=== PATIENT | male | born 1955 | race Caucasian/White ===

== ENCOUNTER → 2016-06-13 | Outpatient (REF) | payer BC ==
[2016-06-13 11:47] LABS: ANION GAP 6 MEQ/L (8-16); BLOOD UREA NITROGEN 14 MG/DL (7-18); CALCIUM LEVEL 8.6 MG/DL (8.8-10.2); CARBON DIOXIDE LEVEL 32 MEQ/L (21-32); CHLORIDE LEVEL 109 MEQ/L (98-107); CREATININE FOR GFR 1.04 MG/DL (0.70-1.30); GLOMERULAR FILTRATION RATE > 60.0 (>49); GLUCOSE, FASTING 93 MG/DL (80-110); POTASSIUM SERUM 4.7 MEQ/L (3.5-5.1); SODIUM LEVEL 147 MEQ/L (136-145)
[2016-06-13 12:00] LABS: FREE T4 0.91 NG/DL (0.76-1.46)
== END ==
LOC: M SFHCLERA 08:13
PROVIDERS: ATTEND Family Medicine
DX: I10 Essential (primary) hypertension (principal); E87.5 Hyperkalemia

== ENCOUNTER → 2016-06-26 | Outpatient (CLI) | payer BC | LOC: M SMT 14:49 | PROVIDERS: ATTEND Nurse Practitioner Women's Health | DX: Z12.5 Encounter for screening for malignant neoplasm of prostate (principal) | CPT/HCPCS: 36415; 81001; 87086; G0103 ==

== ENCOUNTER → 2016-09-12 | Outpatient (CLI) | payer BC ==
[~2016-09-12] VITALS: Ht 188 cm; Wt 96.6 kg
[~2016-09-12] MED LIST: LISI-538 PO; NS 1,000 ML IV SCH; OMEP40CA2 PO; PROPOFOL 200 MG/20 ML VIAL As Ordered ONE
--- NOTE | 2016-09-12 10:07 | ROOR ---
Patient Name: Andi Schafer Procedure Date: 09/12/2016 9:45 AM Date of : 1955 Age: 61 Room: [facility] Gender: Male Note Status: Finalized Procedure: Colonoscopy Indications: Screening in patient at increased risk: Colorectal cancer in father before age 60 Providers: Carrington HESTER MD Referring MD: Kirill Rayo MD Requesting Provider: Medicines: Monitored Anesthesia Care Complications: No immediate complications. Procedure: Pre-Anesthesia Assessment: - The heart rate, respiratory rate, oxygen saturations, blood pressure, adequacy of pulmonary ventilation, and response to care were monitored throughout the procedure. The Colonoscope was introduced through the anus and advanced to the cecum, identified by appendiceal orifice and ileocecal valve. The colonoscopy was performed without difficulty. The patient tolerated the procedure well. The quality of the bowel preparation was good. Findings: The perianal and digital rectal examinations were normal. (Exam: Complete, Prep: Good or Excellent.) Two sessile polyps were found in the sigmoid colon and ascending colon. The polyps were 3 to 5 mm in size. These polyps were removed with a cold snare. Resection and retrieval were complete. Multiple medium-mouthed diverticula were found in the sigmoid colon. Small Internal Hemorrhoids. The exam was otherwise without abnormality on direct and retroflexion views. Impression: - Two 3 to 5 mm polyps in the sigmoid colon and in the ascending colon, removed with a cold snare. Resected and retrieved. - Moderate diverticulosis in the sigmoid colon. - Small Internal Hemorrhoids. - The examination was otherwise normal on direct and retroflexion views. Recommendation: - Repeat colonoscopy in 3 years for surveillance. Carrington Hester MD Carrington HESTER MD 09/12/2016 10:07:05 AM This report has been signed electronically. Number of Addenda: 0 Note Initiated On: 09/12/2016 9:45 AM Estimated Blood Loss: Estimated blood loss: none.
[2016-09-12 10:40] VITALS: BP 182/100
== END | disposition home or self-care (01) ==
LOC: M OPP 08:24
PROVIDERS: ATTEND Internal Medicine Gastroenterology
DX: Z12.11 Encounter for screening for malignant neoplasm of colon (principal); D12.5 Benign neoplasm of sigmoid colon; D12.2 Benign neoplasm of ascending colon; K57.30 Diverticulosis of large intestine without perforation or abscess without bleeding; K64.8 Other hemorrhoids; I10 Essential (primary) hypertension; R12 Heartburn; K21.9 Gastro-esophageal reflux disease without esophagitis; R06.83 Snoring; Z88.0 Allergy status to penicillin; Z79.899 Other long term (current) drug therapy; Z80.42 Family history of malignant neoplasm of prostate; Z80.0 Family history of malignant neoplasm of digestive organs; Z80.1 Family history of malignant neoplasm of trachea, bronchus and lung; Z80.8 Family history of malignant neoplasm of other organs or systems

== ENCOUNTER 2016-10-20 11:36 | Observation (INO) | payer BC ==
[~2016-10-20] VITALS: Ht 188 cm; Wt 86.5 kg
[~2016-10-20 11:36] MED LIST changes: -NS 1,000 ML IV SCH; -PROPOFOL 200 MG/20 ML VIAL As Ordered ONE
[2016-10-20] MEDS ORDERED: NS 1,000 ML IV ONE (12:00)
[2016-10-20 12:09] LABS: BASO % 0.7 % (0.0-1.0); EOS # 0.5 K/mm3 (0.0-0.50); EOS % 6.7 % (0.0-3.0); LARGE UNSTAINED CELL # 0.1 K/mm3 (0.0-0.4); LARGE UNSTAINED CELL % 1.9 % (0.0-4.0); LYMPH # 1.4 K/mm3 (1.5-4.5); LYMPH % 18.3 % (24.0-44.0); MEAN CORPUSCULAR HGB CONC 34.3 g/dl (32.0-36.5); MEAN CORPUSCULAR VOLUME 93.2 fl (80.0-96.0); MONO # 0.3 K/mm3 (0.0-0.8); MONO % 4.3 % (0.0-5.0); NEUTROPHILS # 4.8 K/mm3 (1.8-7.7); NEUTROPHILS % 68.2 % (36.0-66.0); PLATELET COUNT, AUTOMATED 288 k/mm3 (150-450)
[2016-10-20] MEDS ORDERED: METOPROLOL 5 MG/5 ML VIAL IV SCH (12:30)
--- NOTE | 2016-10-20 12:31 | REP ---
NONCONTRAST BRAIN CT: HISTORY: New onset seizure. No comparison study. FINDINGS: Digital lateral mechanics supervisor radiograph is unremarkable. Bone window settings demonstrate an intact bony calvarium. There is no evidence of intracranial hemorrhage. No extra-axial fluid collection is seen. Visualized paranasal sinuses are clear. There is mild diffuse cerebral atrophy. There is no evidence of infarct, mass, extra-axial fluid collection, or midline shift. IMPRESSION: Mild diffuse atrophy, no acute intracranial abnormality. Signed by Kiko Leiva MD 10/20/2016 12:58 P
[2016-10-20 12:41] LABS: ALBUMIN 3.9 GM/DL (3.2-5.2); ALBUMIN/GLOBULIN RATIO 1.08 (1.00-1.93); ALKALINE PHOSPHATASE 108 U/L (45-117); ALT/SGPT 22 U/L (12-78); ANION GAP 12 MEQ/L (8-16); AST/SGOT 17 U/L (15-37); BILIRUBIN,DIRECT 0.1 MG/DL (0.0-0.2); BILIRUBIN,TOTAL 0.5 MG/DL (0.2-1.0); BLOOD UREA NITROGEN 17 MG/DL (7-18); CALCIUM LEVEL 9.2 MG/DL (8.8-10.2); CARBON DIOXIDE LEVEL 23 MEQ/L (21-32); CHLORIDE LEVEL 104 MEQ/L (98-107); CREATININE FOR GFR 1.17 MG/DL (0.70-1.30); FREE T4 0.95 NG/DL (0.76-1.46); GLOMERULAR FILTRATION RATE > 60.0 (>49); GLUCOSE, FASTING 104 MG/DL (80-110); SODIUM LEVEL 139 MEQ/L (136-145); TOTAL PROTEIN 7.5 GM/DL (6.4-8.2)
[2016-10-20] MEDS ORDERED: METOPROLOL TART 25 MG TABLET PO ONE (12:45)
--- NOTE | 2016-10-20 13:05 | REP ---
PORTABLE CHEST: COMPARISON: 08/11/2007. Single view. CHEST: There is no evidence of acute infiltrate. No pleural effusion is seen. The heart is normal in size. The mediastinal silhouette is unremarkable. The visualized osseous structures are intact. IMPRESSION: No acute pulmonary disease. Signed by Rajesh Miranda MD 10/20/2016 08:00 P
[2016-10-20] MEDS ORDERED: ACETAMINOPHEN TAB 650MG DOSE (2X325MG) PO PRN (13:15)
[2016-10-20] MEDS ORDERED: GINS100C2 PO (13:29)
[2016-10-20] MEDS ORDERED: IBUP200C PO (13:29)
[2016-10-20] MEDS ORDERED: MULTIVITAMIN PO (13:29)
[2016-10-20] MEDS ORDERED: VITA10002 PO (13:29)
[2016-10-20] MEDS ORDERED: DRIS50002 PO (13:29)
[2016-10-20] MEDS ORDERED: FLAX1000 PO (13:29)
[2016-10-20] MEDS ORDERED: TYLE325T5 PO (13:29)
[2016-10-20] MEDS ORDERED: GREE1TAB PO (13:29)
[2016-10-20 15:25] VITALS: BP 136/90
--- NOTE | 2016-10-20 16:40 | HPE ---
DATE OF ADMISSION: 10/20/2016 ATTENDING PHYSICIAN: Dr. Janiya Lorenz PRIMARY CARE PROVIDER: Dr. Rayo CHIEF COMPLAINT: Seizure-like activity. HISTORY OF PRESENT ILLNESS: Mr. Schafer is a 61-year-old male with past medical history significant for hypertension, gastroesophageal reflux disease (GERD) and enlarged prostate, who was in his usual state of health this morning. He proceeded to go to the dentist to have a crown and two fillings done. Once he was administered lidocaine, it was reported that he had seizure-like activity that lasted less than 2 minutes. No tongue laceration, no bowel or bladder incontinence. Emergency personnel was called. On initial evaluation, he was postictal and hypoxic. When he was hooked up to the monitor, he was found to be in atrial fibrillation with rapid ventricular rate. The patient denies any previous history of seizures or atrial fibrillation. He denies any recent stressors. No trouble with sleeping. No excessive caffeine use, drinks about one energy drink every couple of days. Consumes alcohol maybe once a week. The patient remembers the lidocaine injection going in, and the next thing he remembers is being evaluated by emergency medical services (EMS). He denied any chest pain/pressure, shortness of breath, lightheadedness, dizziness, palpitations, nausea, vomiting, abdominal pain, diarrhea, rashes or skin lesions. In the emergency department, he was given an intravenous (IV) dose of Lopressor as well as oral Lopressor and converted to sinus rhythm. By the time he got to the emergency department, he was back to baseline mentation. In addition to metoprolol, he was also given normal saline in the emergency department and hospitalist service was called to admit. PAST MEDICAL HISTORY: 1. Hypertension. 2. GERD. 3. Benign prostatic hypertrophy. 4. History of precancerous lesions. 5. Vitamin D deficiency. PAST SURGICAL HISTORY: 1. Colonoscopy. 2. Appendectomy. 3. Hernia repair. 4. Tonsillectomy and adenoidectomy. HOME MEDICATIONS: - acetaminophen 650 mg as needed - vitamin B12 1000 mcg by mouth daily - ibuprofen 400 mg by mouth every 6 hours as needed - lisinopril 20 mg daily - omeprazole 40 mg by mouth at night - vitamin D 50,000 units by mouth weekly ALLERGIES: PENICILLIN (rash when he was 16 years old), LIDOCAINE (seizure). SOCIAL HISTORY: The patient denies any tobacco use. No illicit drug use. He consumes alcohol maybe once a week. Lives with his , son, son's fiancee and granddaughter. One dog in the home. No recent travel. No sick contacts. 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 FAMILY HISTORY: Dad had a history of colon cancer. Mom has a history of glaucoma. Son has a history of seizures. He has two children. REVIEW OF SYSTEMS: As per history of the present illness. In addition, the patient denies any headache, visual disturbance. No weight loss, night sweats, fevers or chills. No hematochezia or melena. No dysuria or hematuria. No history of diabetes or thyroid disorder. No unusual rashes or skin lesions. No syncope. No paresthesias. No history of cerebrovascular accident. No unusual muscle or joint pains. No excessive bleeding or bruising. PHYSICAL EXAMINATION: Vital signs: Temperature is 99.7, pulse is 92, respiratory rate 18, blood pressure 130/86, pulse oximetry 94% on room air. General: The patient is alert and oriented times three, in no acute distress. HEENT: Normocephalic, atraumatic. Extraocular muscles are intact. Pupils are equally round and reactive to light. No scleral icterus. Moist mucosa. Neck: Supple. No cervical lymphadenopathy. No thyromegaly. No jugular venous distension. Heart: Normal S1, S2. Regular rate and rhythm currently. No murmurs appreciated. Lungs: Clear to auscultation bilaterally. No rales, rhonchi or wheezing. Abdomen: Soft, nontender, nondistended. Positive bowel sounds. No rebound, guarding or rigidity. Extremities: No cyanosis or edema. Positive pedal pulses bilaterally. Skin: Warm and dry. No rashes noted. Neurologic: No focal deficits. Cranial nerves: II through XII are grossly intact. Motor, sensation intact. LABORATORY DATA: WBC 7.0, hemoglobin 15.0, hematocrit 43.8, platelet count 288, sodium 139, potassium 4.0, chloride 104, carbon dioxide 23, anion gap 12, BUN 17 , creatinine 1.17, GFR greater than 60, fasting glucose 104, calcium 9.2, magnesium 2.0, total bilirubin 0.5, direct bilirubin 0.1, AST 17, ALT 22, alkaline phosphatase 108, total creatinine kinase 105, troponin less than 0.02, total protein 7.5, albumin 3.9, TSH 1.08, free T4 0.95. IMAGING STUDIES: The patient had a head CT, which showed mild diffuse atrophy. No acute intracranial abnormality. He had a chest x-ray performed, which showed no acute pulmonary disease. The patient's initial EKG showed atrial fibrillation with a heart rate of 108. After rate controlling medication, he was sinus arrhythmia, low voltage in the precordial leads with left anterior fascicular block. ASSESSMENT AND PLAN: 1. Seizure after administration of lidocaine. The patient will have electroencephalogram (EEG). He has no history of previous seizures. Will await for EEG results prior to considering antiepileptic medications. Monitor neuro status with seizure precautions. 2. Atrial fibrillation with rapid ventricular rate, treated with IV and oral Lopressor. The patient converted to sinus rhythm and rate is currently controlled. No history of heart disease or valvular disease. Based on hisCHADS2 -VASc score, he has a score of 1 for hypertension. Will initiate aspirin. Will benefit from outpatient echocardiogram. 3. Hypertension. The patient takes 20 mg of lisinopril at home. 4. Gastroesophageal reflux disease. The patient takes omeprazole 40 mg at home. 5. Vitamin D deficiency. He is on 50,000 units weekly. 6. History of enlarged prostate. The patient states that this is very mild and is not on any medication for this. CODE STATUS: The patient is a FULL CODE. He will be admitted to progressive care unit (PCU) under observation. Dr. Kelly to take over his care in the morning. My preceptor for this patient encounter was Dr. Janiya Lorenz. The preceptor was physically present in the building during the encounter and was fully available. As needed, all aspects of the patient interview, examination, medical decision making process, and medical care plan development were reviewed and approved by the preceptor. The preceptor is aware and concurs with the plan as stated in the body of this note and will attest to such by his/her cosignature. [place]
[2016-10-20] MEDS: ASPIRIN 81 MG ENTERIC TAB PO SCH (16:46)
[2016-10-20 19:56] VITALS: BP 142/77
[2016-10-20 20:37] VITALS: BP 144/78
[2016-10-20] MEDS: METOPROLOL TART 12.5 MG PER 1/2 TAB PO SCH (20:39)
[2016-10-20] MEDS ORDERED: OMEPRAZOLE 20 MG CAP PO SCH (21:00)
[2016-10-21 00:07] VITALS: BP 119/74
[2016-10-21] MEDS ORDERED: SLF 3 ML SYR IV PRN (02:00)
[2016-10-21 04:22] VITALS: BP 132/66
[2016-10-21 05:27] LABS: MEAN CORPUSCULAR HEMOGLOBIN 32.4 pg (27.0-33.0); MEAN CORPUSCULAR HGB CONC 33.8 g/dl (32.0-36.5); MEAN CORPUSCULAR VOLUME 95.9 fl (80.0-96.0); WHITE BLOOD COUNT 9.6 K/mm3 (4.0-10.0)
[2016-10-21 05:36] LABS: ANION GAP 8 MEQ/L (8-16); BLOOD UREA NITROGEN 16 MG/DL (7-18); CALCIUM LEVEL 8.5 MG/DL (8.8-10.2); CARBON DIOXIDE LEVEL 28 MEQ/L (21-32); CHLORIDE LEVEL 104 MEQ/L (98-107); CREATININE FOR GFR 1.09 MG/DL (0.70-1.30); GLOMERULAR FILTRATION RATE > 60.0 (>49); GLUCOSE, FASTING 85 MG/DL (80-110); POTASSIUM SERUM 3.7 MEQ/L (3.5-5.1); SODIUM LEVEL 140 MEQ/L (136-145)
[2016-10-21] MEDS ORDERED: SLF 3 ML SYR IV SCH (06:00)
[2016-10-21 08:00] VITALS: BP 136/70
[2016-10-21 08:12] VITALS: BP 136/70
[2016-10-21] MEDS: ASPIRIN 81 MG ENTERIC TAB PO SCH (08:12)
[2016-10-21] MEDS: METOPROLOL TART 12.5 MG PER 1/2 TAB PO SCH (08:13)
--- NOTE | 2016-10-21 08:54 | EEG ---
DATE OF PROCEDURE: 10/20/2016 REFERRING PHYSICIAN: Dr. Benson Kelly DIAGNOSIS: Seizure. EEG NUMBER: 17 [id number] HISTORY: The patient is a 61-year-old man who had a seizure after injection of lidocaine for a dental procedure. He was noted to have atrial fibrillation on the heart monitor later. This EEG was done to rule out epileptic potential. He is currently taking metoprolol, etc. TECHNICAL DESCRIPTION: This digital EEG was recorded by 21 scalp, ear and two EKG electrodes and was reviewed in bipolar and referential montages following reformatting in 10-20 international electrode placement system. INTERPRETATION: The patient was noted to be in awake and drowsy states during this EEG. Resting awake background rhythm consisted of well-formed posterior dominant rhythm with anterior/posterior gradient comprising of 10 Hz alpha activity measuring 15-40 microvolts in amplitude which was symmetric and reactive to eye opening. Attenuation of posterior dominant rhythm was seen during transition into drowsiness. Stage I and II sleep were reviewed and were symmetric bilaterally. Anteriorly low voltage mixed frequency activity was noted. Wicket waves were noted during drowsiness in left temporal head region. Hyperventilation elicited mild theta slowing of background rhythm. Photic stimulation at 3-30 Hz elicited symmetric photic driving especially at mid frequencies. No focal, lateralizing or epileptiform abnormalities were seen. No clinical or electrographic seizures were recorded. EKG revealed normal sinus rhythm. CONCLUSION: This EEG in awake, drowsy states, stage I and II sleep is within normal limits.
[2016-10-21] MEDS ORDERED: LISINOPRIL 20 MG TAB PO SCH (09:00)
[2016-10-21] MEDS ORDERED: METO12TA PO (10:14)
[2016-10-21] MEDS ORDERED: ASPI1TAB PO (10:30)
--- NOTE | 2016-10-21 10:30 | DS.PDOC ---
Discharge Summary General Date of Admission October 20, 2016 at 13:15 Date of Discharge 10/21/2016 Primary Care Physician: ABBEY VARGAS MD Attending Physician: BENSON KELLY MD Discharge Summary PROCEDURES PERFORMED DURING STAY: Electroencephalogram CONCLUSION: This EEG in awake, drowsy states, stage I and II sleep is within normal limits. ADMITTING DIAGNOSES: 1. Seizure activity secondary to lidocaine administration. 2. Atrial fibrillation with rapid ventricular response. 3. Hypertension. 4. Gastroesophageal reflux disease. 5. Vitamin D deficiency. 6. Benign prostatic hyperplasia. DISCHARGE DIAGNOSES: 1. Atrial fibrillation with rapid ventricular response. 2. Seizure secondary to lidocaine administration. 3. Bradycardia. 4. Hypertension. COMPLICATIONS/CHIEF COMPLAINT: Seizure. HISTORY OF PRESENT ILLNESS: Mr. Schafer is a 61-year-old male with past medical history significant for hypertension, gastroesophageal reflux disease (GERD) and enlarged prostate, who was in his usual state of health this morning. He proceeded to go to the dentist to have a crown and two fillings done. Once he was administered lidocaine, it was reported that he had seizure-like activity that lasted less than 2 minutes. No tongue laceration, no bowel or bladder incontinence. Emergency personnel was called. On initial evaluation, he was postictal and hypoxic. When he was hooked up to the monitor, he was found to be in atrial fibrillation with rapid ventricular rate. The patient denies any previous history of seizures or atrial fibrillation. He denies any recent stressors. No trouble with sleeping. No excessive caffeine use, drinks about one energy drink every couple of days. Consumes alcohol maybe once a week. The patient remembers the lidocaine injection going in, and the next thing he remembers is being evaluated by emergency medical services (EMS). He denied any chest pain/pressure, shortness of breath, lightheadedness, dizziness, palpitations, nausea, vomiting, abdominal pain, diarrhea, rashes or skin lesions. In the emergency department, he was given an intravenous (IV) dose of Lopressor as well as oral Lopressor and converted to sinus rhythm. By the time he got to the emergency department, he was back to baseline mentation. In addition to metoprolol, he was also given normal saline in the emergency department and hospitalist service was called to admit. HOSPITAL COURSE: Electroencephalogram was obtained for seizure secondary to lidocaine administration and was found to be negative. Patient converted to sinus rhythm from atrial fibrillation with rapid ventricular response after administration of metoprolol and remained somewhat bradycardic. Decrease metoprolol to 6.25 mg twice a day at time of discharge. Prescribed aspirin at time of discharge. Remained on lisinopril for hypertension. Continued with omeprazole for gastric esophageal reflux disease. Patient can continue to take vitamin D supplementation. Patient had no acute events and improved during hospitalization. Stable at time of discharge. DISCHARGE MEDICATIONS: Please see below. ALLERGIES: Please see below. PHYSICAL EXAMINATION ON DISCHARGE: VITAL SIGNS: Please see below. GENERAL: Well-nourished, well-developed male resting him to be in hospital bed upon evaluation this morning, appears stated age, in no apparent distress HEENT: Atraumatic, normocephalic, PERRL, EOMI, wears spectacles, nasal septum appears midline, oral mucosa appears pink and moist, nares are patent NECK: Soft, supple, trachea midline, no lymphadenopathy appreciated CARDIOVASCULAR EXAMINATION: Regular rate and rhythm, normal S1 and S2, mildly bradycardic RESPIRATORY EXAMINATION: Clear to auscultation bilaterally, adequate inspiratory and expiratory airway excursion, no wheeze, rhonchi, crackles appreciated ABDOMINAL EXAMINATION: Soft, flat, nontender, nondistended, bowel sounds appreciated EXTREMITIES: Moving all 4 extremities appropriately, no edema appreciated, upper and lower extremity pulses appreciated bilaterally, equal, symmetrical, +2 /4 SKIN: Warm, dry, intact NEUROLOGICAL EXAMINATION: Cranial nerves II through XII grossly intact PSYCHIATRIC EXAMINATION: Mood and affect appear appropriate LABORATORY DATA: Please see below. IMAGING: Head CT without contrast IMPRESSION: Mild diffuse atrophy, no acute intracranial abnormality. Portable chest x-ray IMPRESSION: No acute pulmonary disease. PROGNOSIS: Stable. ACTIVITY: As tolerated. DIET: 2 g sodium. DISCHARGE PLAN: See discharge instructions. DISPOSITION: Home. DISCHARGE INSTRUCTIONS: 1. Start taking metoprolol 6.25 mg twice a day. 2. Start taking aspirin 81 mg. 3. Return to the nearest emergency department if you experience heart palpitations, heart racing, or seizure-like activity. ITEMS TO FOLLOWUP ON ON OUTPATIENT: 1. Follow-up with Dr. Vargas in 7-10 days. 2. Follow-up with cardiology. DISCHARGE CONDITION: Stable. TIME SPENT ON DISCHARGE: Greater than 30 minutes. Vital Signs/I&Os Vital Signs Date Time Temp Pulse Resp B/P (MAP) Pulse Ox O2 Delivery O2 Flow Rate FiO2 10/21/16 08:13 56 10/21/16 08:12 136/70 10/21/16 08:00 99.2 16 96 Room Air I&O- Last 24 Hours up to 6 AM 10/21/16 05:59 Intake Total 880 ml Output Total 225 ml Balance 655 ml Laboratory Data Labs 24H Laboratory Tests 2 10/20/16 11:59: White Blood Count 7.0, Red Blood Count 4.70, Hemoglobin 15.0, Hematocrit 43.8, Mean Corpuscular Volume 93.2, Mean Corpuscular Hemoglobin 32.0, Mean Corpuscular Hemoglobin Concent 34.3, Red Cell Distribution Width 12.0, Platelet Count 288, Neutrophils (%) (Auto) 68.2H, Lymphocytes (%) (Auto) 18.3L, Monocytes (%) (Auto) 4.3, Eosinophils (%) (Auto) 6.7H, Basophils (%) (Auto) 0.7 , Neutrophils # (Auto) 4.8, Lymphocytes # (Auto) 1.4L, Monocytes # (Auto) 0.3, Eosinophils # (Auto) 0.5, Basophils # (Auto) 0.0, Large Unclassified Cells % 1.9 , Large Unclassified Cells # 0.1, Anion Gap 12, Glomerular Filtration Rate > 60.0, Calcium Level 9.2, Magnesium Level 2.0, Aspartate Amino Transf (AST/SGOT) 17, Alanine Aminotransferase (ALT/SGPT) 22, Alkaline Phosphatase 108, Total Bilirubin 0.5, Direct Bilirubin 0.1, Total Creatine Kinase 105, Creatine Kinase MB 1.5, Creatine Kinase MB Relative Index 1.42, Troponin I < 0.02, Total Protein 7.5, Albumin 3.9, Albumin/Globulin Ratio 1.08, Thyroid Stimulating Hormone (TSH) 1.080, Free Thyroxine 0.95 10/21/16 04:54: Anion Gap 8, Glomerular Filtration Rate > 60.0, Calcium Level 8.5L, Blood Urea Nitrogen 16, Creatinine 1.09, Sodium Level 140, Potassium Level 3.7, Chloride Level 104, Carbon Dioxide Level 28 CBC/BMP Laboratory Tests 10/20/16 11:59 Red Blood Count 4.70, Mean Corpuscular Volume 93.2, Mean Corpuscular Hemoglobin 32.0, Mean Corpuscular Hemoglobin Concent 34.3, Red Cell Distribution Width 12.0 , Neutrophils (%) (Auto) 68.2 H, Lymphocytes (%) (Auto) 18.3 L, Monocytes (%) ( Auto) 4.3, Eosinophils (%) (Auto) 6.7 H, Basophils (%) (Auto) 0.7, Neutrophils # (Auto) 4.8, Lymphocytes # (Auto) 1.4 L, Monocytes # (Auto) 0.3, Eosinophils # (Auto) 0.5, Basophils # (Auto) 0.0 10/21/16 04:54 Red Blood Count 4.37, Mean Corpuscular Volume 95.9, Mean Corpuscular Hemoglobin 32.4, Mean Corpuscular Hemoglobin Concent 33.8, Red Cell Distribution Width 12.0 , Calcium Level 8.5 L Discharge Medications Scheduled (Ginseng) 100 Mg Cap, 100 MG PO DAILY, (Reported) (Green Tea) 1 Tab Tab, 2 TAB PO DAILY, (Reported) Aspirin (Aspirin 81) 81 Mg Tab, 81 MG PO DAILY Cyanocobalamin (Vitamin B-12) 1,000 Mcg Tab, 1,000 MCG PO DAILY, (Reported) Linseed Oil (Flaxseed Oil) 1,000 Mg Cap, 1,000 MG PO DAILY, (Reported) Lisinopril (Lisinopril) 20 Mg Tab, 20 MG PO DAILY, (Reported) Metoprolol Tartrate (Metoprolol Tartrate) 25 Mg Tab, 6.25 MG PO BID Omeprazole (Omeprazole) 40 Mg Cap, 40 MG PO QPM, (Reported) DINNERTIME Vitamin D (Drisdol) 50,000 Unit Cap, 50,000 UNIT PO QWEEK, (Reported) SUNDAY [Viper Multivitamin ] , 2 TAB PO DAILY, (Reported) Scheduled PRN Acetaminophen (Tylenol) 325 Mg Tab, 650 MG PO Q4H PRN for PAIN, (Reported) Allergies Coded Allergies: Penicillin G (Unverified Allergy, Intermediate, rash, 10/20/16) Lidocaine (Verified Adverse Reaction, Intermediate, seizure, 10/20/16) GME ATTESTATION GME ATTESTATION My preceptor for this patient encounter was physically present in the building during the encounter and was fully available. As needed, all aspects of the patient interview, examination, medical decision making process, and medical care plan development were reviewed and approved by the preceptor. Preceptor is aware and concurs with the plan as stated in the body of this note and will attest to such by his/her cosignature. ATTENDING NOTE I, Benson Kelly, have both independently examined this patient as well as reviewed the documentation. I have discussed in detail with the resident the findings and plan of treatment as documented in the residents documentation. I will continue to follow the patient and offer further guidance to the patients care as necessary during this hospital stay. CATHI KWONG October 21, 2016 10:30 BENSON KELLY MD October 31, 2016 14:23
[2016-10-21 12:00] VITALS: BP 126/72
--- NOTE | 2016-10-21 16:15 | ECGEPIP ---
Stationary ECG Study [facility] - ED Test Date: 2016-10-20 Pat Name: ZULEIKA SCHNEIDER Department: Room: - Gender: M [employer]her [employer] Charger: rn : 1955 Requested By: Gareth Bridges Order Number: [id number] Reading MD: Kaycee Small Measurements Intervals [place] Rate: 108 P: [place]: 0 QRS: -56 QRSD: 93 T: 64 QT: 319 QTc: 429 Interpretive Statements ATRIAL FIBRILLATION WITH RAPID VENTRICULAR RESPONSE PATTERN CONSISTENT WITH PULMONARY DISEASE LEFT ANTERIOR FASCICULAR BLOCK NO PRIOR FOR COMPARISON Electronically Signed On 10-21-2016 16:15:11 EDT by Kaycee Small
--- NOTE | 2016-10-21 16:16 | ECGEPIP ---
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
== END 2016-10-21 12:16 | disposition home or self-care (01) ==
LOC: EDBD 11:36 → M ED 12:10 → M ED INP 13:15 → M PCU 15:15
PROVIDERS: ADMIT Internal Medicine; ATTEND Internal Medicine
DX: I48.91 Unspecified atrial fibrillation (principal); R56.9 Unspecified convulsions; R00.1 Bradycardia, unspecified; I10 Essential (primary) hypertension; K21.9 Gastro-esophageal reflux disease without esophagitis; E55.9 Vitamin D deficiency, unspecified; N40.0 Benign prostatic hyperplasia without lower urinary tract symptoms; Z79.899 Other long term (current) drug therapy

== ENCOUNTER 2017-08-07 09:51 | Inpatient (IN) | payer BC ==
[2017-08-07] MEDS: ENOXAPARIN 40 MG/0.4 ML SYRINGE (J1650) SC (09:00)
[2017-08-07 11:49] LABS: BASO # 0.1 10^3/uL (0.0-0.2); BASO % 0.5 % (0.0-1.0); EOS # 0.5 10^3/uL (0.0-0.50); EOS % 5.6 % (0.0-3.0); HEMATOCRIT 39.9 % (42.0-52.0); HEMOGLOBIN 13.7 g/dl (14.0-18.0); IMMATURE GRANULOCYTE % 0.3 % (0-3.0); LYMPH # 1.6 10^3/uL (1.5-4.5); LYMPH % 16.3 % (24.0-44.0); MEAN CORPUSCULAR HEMOGLOBIN 32.5 pg (27.0-33.0); MEAN CORPUSCULAR HGB CONC 34.3 g/dl (32.0-36.5); MEAN CORPUSCULAR VOLUME 94.5 fl (80.0-96.0); MONO # 0.7 10^3/uL (0.0-0.8); MONO % 7.5 % (0.0-5.0); NEUTROPHILS # 6.8 10^3/uL (1.8-7.7); NEUTROPHILS % 69.8 % (36.0-66.0); PLATELET COUNT, AUTOMATED 286 10^3/uL (150-450); RED BLOOD COUNT 4.22 10^6/uL (4.30-6.10); RED CELL DISTRIBUTION WIDTH 12.4 % (11.5-14.5); WHITE BLOOD COUNT 9.7 10^3/uL (4.0-10.0)
[2017-08-07 12:15] LABS: ANION GAP 4 MEQ/L (8-16); BLOOD UREA NITROGEN 16 MG/DL (7-18); CALCIUM LEVEL 8.9 MG/DL (8.8-10.2); CARBON DIOXIDE LEVEL 31 MEQ/L (21-32); CHLORIDE LEVEL 106 MEQ/L (98-107); CK-MB VALUE MASS 1.2 NG/ML (0.0-3.6); CPK CREATINE PHOSPHOKINASE 68 U/L (39-308); CREATININE FOR GFR 0.94 MG/DL (0.70-1.30); GLOMERULAR FILTRATION RATE > 60.0 (>49); GLUCOSE, FASTING 88 MG/DL (70-100); MB/CK RELATIVE INDEX 1.76 (< OR =4); POTASSIUM SERUM 4.4 MEQ/L (3.5-5.1); SODIUM LEVEL 141 MEQ/L (136-145); TROPONIN I < 0.02 NG/ML (< 0.10)
[2017-08-07] MEDS ORDERED: ACETAMINOPHEN TAB 650MG DOSE (2X325MG) PO (15:45)
[2017-08-07] MEDS ORDERED: METOPROLOL SUCC *XL* 12.5MG PER 1/2 TAB (TopROL *XL*) PO (21:00)
[2017-08-07] MEDS: OMEPRAZOLE 20 MG CAP PO (21:00)
[2017-08-07] MEDS: METOPROLOL SUCC *XL* 12.5MG PER 1/2 TAB (TopROL *XL*) PO (21:00)
[2017-08-07 22:49] LABS: CPK CREATINE PHOSPHOKINASE 58 U/L (39-308); MB/CK RELATIVE INDEX 1.72 (< OR =4); TROPONIN I < 0.02 NG/ML (< 0.10)
[2017-08-08 06:12] LABS: HEMATOCRIT 40.3 % (42.0-52.0); HEMOGLOBIN 13.8 g/dl (14.0-18.0); MEAN CORPUSCULAR HEMOGLOBIN 31.9 pg (27.0-33.0); MEAN CORPUSCULAR HGB CONC 34.2 g/dl (32.0-36.5); MEAN CORPUSCULAR VOLUME 93.1 fl (80.0-96.0); PLATELET COUNT, AUTOMATED 272 10^3/uL (150-450); RED BLOOD COUNT 4.33 10^6/uL (4.30-6.10); RED CELL DISTRIBUTION WIDTH 12.2 % (11.5-14.5); WHITE BLOOD COUNT 9.9 10^3/uL (4.0-10.0)
[2017-08-08 06:36] LABS: ANION GAP 5 MEQ/L (8-16); BLOOD UREA NITROGEN 14 MG/DL (7-18); CALCIUM LEVEL 8.7 MG/DL (8.8-10.2); CARBON DIOXIDE LEVEL 30 MEQ/L (21-32); CHLORIDE LEVEL 105 MEQ/L (98-107); CPK CREATINE PHOSPHOKINASE 49 U/L (39-308); CREATININE FOR GFR 0.95 MG/DL (0.70-1.30); GLOMERULAR FILTRATION RATE > 60.0 (>49); GLUCOSE, FASTING 91 MG/DL (70-100); MB/CK RELATIVE INDEX 2.04 (< OR =4); POTASSIUM SERUM 4.1 MEQ/L (3.5-5.1); SODIUM LEVEL 140 MEQ/L (136-145); TROPONIN I < 0.02 NG/ML (< 0.10)
[2017-08-08] MEDS: METOPROLOL SUCC *XL* 12.5MG PER 1/2 TAB (TopROL *XL*) PO (08:57)
[2017-08-08] MEDS: ASPIRIN 81 MG ENTERIC TAB PO (08:58)
[2017-08-08] MEDS: LISINOPRIL 20 MG TAB PO (08:58)
[2017-08-08] MEDS: ENOXAPARIN 40 MG/0.4 ML SYRINGE (J1650) SC (08:58)
== END 2017-08-08 14:37 | disposition home or self-care (01) | DRG 201 ==
LOC: M PCU 13:38 → M ED 09:51 → M ED INP 13:38 → M PCU 23:11
DX: R00.1 Bradycardia, unspecified (principal); I10 Essential (primary) hypertension; K21.9 Gastro-esophageal reflux disease without esophagitis; Z79.82 Long term (current) use of aspirin; Z79.899 Other long term (current) drug therapy; Z88.0 Allergy status to penicillin; Z88.4 Allergy status to anesthetic agent

== ENCOUNTER → 2017-08-13 | Outpatient (REF) | payer BC | LOC: M SFHCLERA 14:41 | DX: Z12.5 Encounter for screening for malignant neoplasm of prostate (principal) | CPT/HCPCS: G0103 ==

== ENCOUNTER → 2017-11-15 | Outpatient (REF) | payer BC ==
[2017-11-15 11:28] LABS: BASO # 0.1 10^3/uL (0.0-0.2); BASO % 0.6 % (0.0-1.0); EOS # 0.5 10^3/uL (0.0-0.50); HEMATOCRIT 41.9 % (42.0-52.0); HEMOGLOBIN 14.3 g/dl (13.5-17.5); IMMATURE GRANULOCYTE % 0.4 % (0-3.0); LYMPH # 1.6 10^3/uL (1.5-4.5); LYMPH % 16.5 % (24.0-44.0); MEAN CORPUSCULAR HEMOGLOBIN 32.1 pg (27.0-33.0); MEAN CORPUSCULAR HGB CONC 34.1 g/dl (32.0-36.5); MEAN CORPUSCULAR VOLUME 94.2 fl (80.0-96.0); MONO # 0.8 10^3/uL (0.0-0.8); MONO % 7.9 % (0.0-5.0); NEUTROPHILS # 6.9 10^3/uL (1.8-7.7); NEUTROPHILS % 69.6 % (36.0-66.0); PLATELET COUNT, AUTOMATED 235 10^3/uL (150-450); RED BLOOD COUNT 4.45 10^6/uL (4.30-6.10); RED CELL DISTRIBUTION WIDTH 12.1 % (11.5-14.5); WHITE BLOOD COUNT 9.9 10^3/uL (4.0-10.0)
[2017-11-15 11:48] LABS: ESTIMATED AVERAGE GLUCOSE 108 MG/DL (60-110); HEMOGLOBIN A1c 5.4 %
[2017-11-15 12:02] LABS: MALB URINE SIEMENS 5.1 MG/L; MAU/CREAT RATIO 9.8 MCG/MG (0.0-30.0)
[2017-11-15 12:14] LABS: POS COUNT POS FLAG
[2017-11-15 12:24] LABS: ALBUMIN 3.7 GM/DL (3.2-5.2); ALBUMIN/GLOBULIN RATIO 1.09 (1.00-1.93); ALKALINE PHOSPHATASE 123 U/L (45-117); ALT/SGPT 25 U/L (12-78); ANION GAP 3 MEQ/L (8-16); AST/SGOT 16 U/L (7-37); BILIRUBIN,TOTAL 0.8 MG/DL (0.2-1.0); BLOOD UREA NITROGEN 12 MG/DL (7-18); CARBON DIOXIDE LEVEL 31 MEQ/L (21-32); CHLORIDE LEVEL 108 MEQ/L (98-107); CHOLESTEROL LEVEL 138 MG/DL (<200); CHOLESTEROL RISK RATIO 2.936 (<5); CK-MB VALUE MASS 2.2 NG/ML (<3.6); CPK CREATINE PHOSPHOKINASE 101 U/L (39-308); CREATININE FOR GFR 1.04 MG/DL (0.70-1.30); GLOMERULAR FILTRATION RATE > 60.0 (>49); GLUCOSE, FASTING 84 MG/DL (70-100); HDL CHOLESTEROL 47 MG/DL (>40); LDL CHOLESTEROL 79.4 MG/DL (<100); MB/CK RELATIVE INDEX 2.17 (< OR =4); NON-HDL-C 91 MG/DL; SODIUM LEVEL 142 MEQ/L (136-145); THYROID STIMULATING HORMONE 0.887 uIU/ML (0.358-3.740); TOTAL PROTEIN 7.1 GM/DL (6.4-8.2); TRIGLYCERIDES LEVEL 58 MG/DL (<150)
[2017-11-15 12:26] LABS: POTASSIUM SERUM 5.2 MEQ/L (3.5-5.1)
== END ==
LOC: M SFHCLERA 09:06
DX: I10 Essential (primary) hypertension (principal)
CPT/HCPCS: 84443

== ENCOUNTER → 2018-05-10 | Outpatient (REF) | payer BC | LOC: M SFHCPLAZ 17:39 | DX: D23.5 Other benign neoplasm of skin of trunk (principal) | CPT/HCPCS: 88305 ==

== ENCOUNTER → 2018-09-21 | Outpatient (REF) | payer MEDICARE, BC ==
[~2018-09-21] MED LIST changes: +ASPI81TA26 PO; +DRIS50003 PO; +FLAX10008 PO; +GINS100C2 PO; +GREE1TAB PO; +IBUP200C25 PO; +METO1TAB32 PO; +METO1TAB87 PO; +MULTIVITAMIN PO; +TYLE325T5 PO; +VITA10002 PO
[2018-09-21 12:35] LABS: BLOOD UREA NITROGEN 18 MG/DL (7-18); CALCIUM LEVEL 9.3 MG/DL (8.8-10.2); CARBON DIOXIDE LEVEL 31 MEQ/L (21-32); CHLORIDE LEVEL 103 MEQ/L (98-107); CHOLESTEROL LEVEL 153 MG/DL (<200); CHOLESTEROL RISK RATIO 3.187 (<5); CREATININE FOR GFR 1.19 MG/DL (0.70-1.30); GLOMERULAR FILTRATION RATE > 60.0 (>49); GLUCOSE, FASTING 90 MG/DL (70-100); HDL CHOLESTEROL 48 MG/DL (>40); LDL CHOLESTEROL 95 MG/DL (<100); NON-HDL-C 105 MG/DL; POTASSIUM SERUM 4.5 MEQ/L (3.5-5.1); SODIUM LEVEL 140 MEQ/L (136-145); TRIGLYCERIDES LEVEL 50 MG/DL (<150)
== END ==
LOC: M SFHCLERA 10:00
PROVIDERS: ATTEND Family Medicine
DX: I10 Essential (primary) hypertension (principal); Z13.220 Encounter for screening for lipoid disorders; Z12.5 Encounter for screening for malignant neoplasm of prostate
CPT/HCPCS: 80048; 80061; G0103

== ENCOUNTER → 2019-04-07 | Outpatient (REF) | payer MEDICARE, BC ==
[~2019-04-07] MED LIST changes: +CYAN100049 PO; -OMEP40CA2 PO; +OMEP40CA97 PO; -VITA10002 PO
[2019-04-07 12:54] LABS: BLOOD UREA NITROGEN 16 MG/DL (7-18); CALCIUM LEVEL 9.3 MG/DL (8.8-10.2); CARBON DIOXIDE LEVEL 32 MEQ/L (21-32); CHLORIDE LEVEL 102 MEQ/L (98-107); CREATININE FOR GFR 1.21 MG/DL (0.70-1.30); GLOMERULAR FILTRATION RATE > 60.0 (>49); GLUCOSE, FASTING 86 MG/DL (70-100); POTASSIUM SERUM 4.4 MEQ/L (3.5-5.1); SODIUM LEVEL 138 MEQ/L (136-145)
== END ==
LOC: M SFHCLERA 09:56
PROVIDERS: ATTEND Family Medicine
DX: I10 Essential (primary) hypertension (principal)
CPT/HCPCS: 80048; G0463